=== PATIENT | female | born 2005 | race Caucasian/White ===

== ENCOUNTER 2024-08-24 21:35 | Emergency (ER) | payer OTHER, SELFPAY ==
--- NOTE | ~2024-08-24 | XR_ITS ---
EXAMINATION: XR CHEST CLINICAL INFORMATION: Cough COMPARISON: None available. TECHNIQUE: Frontal view of the chest was obtained. FINDINGS: No significant abnormality is noted involving the heart, lungs, mediastinum, bony thorax or soft tissues. XR/XR chest 1V IMPRESSION: Unremarkable examination. Electronically signed by: Hernandez Pearce MD 08/24/2024 10:13 PM [facility] [place]
[2024-08-24 21:40] VITALS: BP 136/80; PULSE 99; RESP 18; TEMP 36.1; O2SAT 98; BMI 33.3
--- NOTE | 2024-08-24 21:54 | ED.URI ---
HPI - URI/Sore Throat General Chief Complaint: Upper Respiratory Symptoms Stated Complaint: Flu like symptoms Time Seen by Provider: 08/24/24 21:46 Source: patient and family Mode of arrival: ambulatory Limitations: no limitations History of Present Illness ED Provider: DR. Dennis HPI Narrative: 18-year-old female came in for evaluation of upper respiratory infection x1 week. Patient exposed at work to a sick contacts with upper respiratory symptoms, complaining of congestion, coughing, sinus pressure, bilateral ear pain, sneezing. Related Data Allergies Allergy/AdvReac Type Severity Reaction Status Date / Time Penicillins [PENICILLINS] Allergy Intermediate HIVES Verified 08/24/24 21:42 Review of Systems Review of Systems: All other systems are reviewed and are negative Constitutional: Reports as per HPI and Reports no additional constitutional complaints Eyes: Reports as per HPI and Reports no additional eye complaints Reports system reviewed and no additional complaints, except as documented Cardiovascular: Reports as per HPI and Reports no additional cardiovascular complaints Respiratory: Reports as per HPI and Reports no additional respiratory complaints Gastrointestinal: Reports as per HPI and Reports no additional gastrointestinal complaints Genitourinary: Reports no additional female genitourinary complaints Musculoskeletal: Reports no additional musculoskeletal complaints Skin/Breast: Reports system reviewed and no additional complaints, except as docu Psychiatric: Reports no additional psychiatric complaints Endocrine: Reports no additional endocrine complaints Hematologic/Lymphatic: Reports no additional hematologic/lymphatic complaints Allergic/Immunologic: Reports no additional allergic/immunologic complaints Reports system reviewed and no additional complaints, except as documented and Reports Abnormal speech present PMFSH Social History Social History Advance Directives: No Advance Directives Information Provided: Yes Do you have a plan to hurt others: No Plan Physical Exam Vital Signs: Vital Signs: Last Vital Signs Temp 97.0 F 08/24/24 21:40 Pulse 99 08/24/24 21:40 Resp 18 08/24/24 21:40 BP 136/80 08/24/24 21:40 Pulse Ox 98 08/24/24 21:40 O2 Del Method Room Air 08/24/24 21:40 BMI result Body Mass Index 33.3 Vital signs have been reviewed and appear to be correct. Blood pressure elevated. Heart rate normal. Respiratory rate normal. Temperature normal. Oxygen saturation normal. Appearance: Alert. Oriented X3. No acute distress. Head: Normal external exam. Normocephalic. Atraumatic. No Murguia signs noted. No raccoon eyes noted Eyes: PERRLA. EOMI. Conjunctiva and sclera normal. Eyelids normal. ENT: TM's Normal. Pharynx normal. Uvula midline. Moist mucous membranes. No trismus noted. No drooling noted. No muffled voice noted. Neck: Normal inspection. Neck supple. FROM. No adenopathy. Thyroid Normal. No meningeal signs. No neck mass noted. CVS: Normal heart rate and rhythm. Heart sound normal. No murmurs noted. Pulses normal throughout. Respiratory: No respiratory distress. Painless inspiration. Breath sounds normal. No wheezes/rales/rhonchi noted. Chest nontender. No accessory muscle usage noted or decreased air movement noted. Abdomen: Soft and nontender. Bowel sounds normal in all 4 quadrants. No distention noted. No organomegaly noted. No visible injury noted. Back: No CVA tenderness. Full range of motion noted. Skin: Skin warm and dry. Normal skin color. Normal skin turgor. No rashes/lesions/lacerations noted. Extremities: No lower extremity edema. Extremities exhibit normal range of motion. Extremities nontender. Neuro: Oriented X 3. Cranial nerve exam: II-XII are grossly intact No motor deficit. No sensory deficit. Reflexes normal. Course Reevaluation(s) Reevaluation #1: Upper respiratory symptoms due to COVID-19 infection. Time: 23:00 Medical Decision Making Differential Diagnosis Differential Diagnoses: The differential diagnosis associated with the presentation includes (Pneumonia, pneumothorax, pleural effusion, viral upper respiratory infection.) Admission/Observation Consideration of admission/observation: Escalation of care including admission/observation considered Lab Data MDM Lab Attestation statement: I reviewed the patient's lab results. Labs: Lab Results 08/24/24 Range/Units 21:46 Influenza Type A (PCR) NEGATIVE (Negative) Influenza Type B (PCR) NEGATIVE (Negative) RSV RNA Qual (PCR) NEGATIVE (Negative) SARS-CoV-2 RNA (RT-PCR) POSITIVE A (Negative) Independent Interpretation I performed an independent interpretation of an: Plain X-Ray (Chest: No acute intrathoracic pathology.) Radiology Impression Discussion of test interpretation with radiology: I have reviewed the radiologist's reading. Discharge Plan Discharge Clinical Impression: Upper respiratory infection, COVID-19 Patient Disposition: Home, Self-Care Instructions: Upper Respiratory Infection (ED) Additional Instructions: Self quarantine, keep social distancing, where face mask at all times, frequent hand wash. Stand Alone Forms: Work/School Release Print Language: Macanese
[2024-08-24 22:26] LABS: Influenza A PCR NEGATIVE (Negative); Influenza B PCR NEGATIVE (Negative); Resp Syncy Virus RNA Qual PCR NEGATIVE (Negative); SARS COV2 PCR INHOUSE POSITIVE (Negative)
[2024-08-24 23:14] VITALS: BP 136/80; PULSE 99; RESP 18; TEMP 36.1; O2SAT 98
== END 2024-08-24 23:14 | disposition home or self-care (01) ==
PROVIDERS: Emergency Provider Emergency Medicine
DX: J06.9 Acute upper respiratory infection, unspecified (principal); U07.1 COVID-19; J02.9 Acute pharyngitis, unspecified; H92.03 Otalgia, bilateral; R05.9 Cough, unspecified
CPT/HCPCS: 0241U; 71045; 99282; 99283

== ENCOUNTER 2025-08-22 11:15 | Emergency (ER) | payer OTHER, SELFPAY ==
--- NOTE | ~2025-08-22 | XR_ITS ---
EXAMINATION: XR ANKLE 3 OR MORE VIEWS RIGHT, XR FOOT 3 OR MORE VIEWS RIGHT HISTORY: fall COMPARISON: There are no prior studies available for comparison. FINDINGS: Six views of the right foot and ankle are submitted. Osseous mineralization is normal. There is no fracture or dislocation. The joint spaces are preserved. There is soft tissue swelling over the lateral malleolus. XR/XR ankle RT min 3V IMPRESSION: Soft tissue swelling over the lateral malleolus. No evidence of fracture of the right foot or ankle. Electronically signed by: Tam Lang MD 08/22/2025 12:10 [place] [facility] [place]
--- NOTE | ~2025-08-22 | XR_ITS ---
EXAMINATION: XR ANKLE 3 OR MORE VIEWS RIGHT, XR FOOT 3 OR MORE VIEWS RIGHT HISTORY: fall COMPARISON: There are no prior studies available for comparison. FINDINGS: Six views of the right foot and ankle are submitted. Osseous mineralization is normal. There is no fracture or dislocation. The joint spaces are preserved. There is soft tissue swelling over the lateral malleolus. XR/XR foot RT min 3V IMPRESSION: Soft tissue swelling over the lateral malleolus. No evidence of fracture of the right foot or ankle. Electronically signed by: Tam Lang MD 08/22/2025 12:10 PM [facility]
[2025-08-22 11:18] VITALS: BP 138/75; PULSE 100; RESP 18; TEMP 36.6; O2SAT 99; BMI 39.1
--- NOTE | 2025-08-22 11:44 | ED_ITS ---
HPI - General Adult General Chief complaint: Extremity Injury, Lower Stated complaint: Right Ankle- Swelling Time Seen by Provider: 08/22/25 12:30 Source: patient Mode of arrival: ambulatory Limitations: no limitations History of Present Illness ED Provider: Kota Salas HPI narrative: 19 yold female presents to the ED For RIght lower extremity pain after mechanical fall down some stairs due to slipping. patient denies hitting head or loss of conscisounes. Patient states no other compalints. Related Data Previous Rx's ?Medication ?Instructions ?Recorded naproxen 500 mg tablet 500 mg PO BID PRN pain #14 t abs 08/22/25 Allergies Allergy/AdvReac Type Severity Reaction Status Date / Time Penicillins (PENICILLINS) Allergy Intermediate HIVES Verified 08/22/25 11:19 Review of Systems 2 Review of Systems: RME: RIght ankle Yes all other systems are reviewed and are negative [facility] Social History Social History Advance Directives: No Advance Directives Information Provided: No Do you have a plan to hurt others: No Plan Physical Exam ED Vital Signs: Vital Signs - 24 hr 08/22/25 11:18 Temperature 98 F Pulse Rate 100 Respiratory Rate 18 Blood Pressure 138/75 Pulse Oximetry 99 Oxygen Delivery Method Room Air BMI result Body Mass Index 39.1 Const General: cooperative, healthy appearing, comfortable, no acute distress, well developed, alert, awake and Physically active Orientation/consciousness: patient oriented x3 HENMT Head: Yes normal to inspection, Yes No palpable skull fracture present, Yes normocephalic and Yes atraumatic Ears: hearing grossly normal bilaterally, external ears normal, TM's normal bilaterally, TM normal on the right, TM normal on the left, EAC's normal and mastoids normal Eyes General: appearance normal, both eyes and all related structures Neck Neck: Yes normal visual inspection, Yes full ROM, Yes no lymphadenopathy, Yes no meningeal signs, Yes trachea midline, Yes supple, No anterior neck swelling and No tender Chest Chest palpation & inspection: normal inspection of the chest and normal palpation of entire chest wall Resp Effort & Inspection: normal respiratory effort and able to speak in complete sentences Cardio Jugular venous distension: no JVD Heart sounds: S1 normal heart sound present and S2 normal heart sound present GI Inspection: Yes normal to inspection Palpation (GI): Soft to palpation, not firm, nontender, no guarding and not rigid General: Yes no CVA tenderness Back/Spine/Pelvis Back: no CVA tenderness and No back tenderness Skin General skin exam: no rashes or lesions noted, elasticity normal and turgor normal Neuro General: patient oriented x3, gait normal, tone normal, moves all extremities, Normal light touch and pain sensation, no meningeal signs, no focal motor deficits, CN's II-XI intact bilaterally and normal sensation to monofilament Extrem General: Yes normal to inspection, Yes full ROM and Yes capillary refill normal Ankle/foot/toe images: 2 1. Positive for tenderness on palpation. Negative for crepitus, ecchymosis, deformity, erythema, or red streaks. Rest of extremity normal. Motor/neuro/vascular exam intact Psych Appearance: grossly normal, well kempt and not disheveled Course Course Course Narrative: RME: 19-year-old female presents to the right ankle pain after falling down stairs. patient michael hitting head. imaging ordered. Medical Decision Making Medical Decision Making MDM Narrative: 19-year-old female presents to ED for right ankle pain after fall. Patient denies any head injury or any other complaints. X-rays negative for fracture. Jacoby boot ordered. Patient is educated worrisome signs informed return to the ED immediately. NOt suspecting compartment syndrome, DVT, Cellulitits, arterial occlusions, or any other life threatening etiology. Differential Diagnosis Differential Diagnoses: The differential diagnosis associated with the presentation includes (Fracture, dislocation) Admission/Observation Consideration of admission/observation: Escalation of care including admission/observation considered Independent Interpretation I performed an independent interpretation of an: Plain X-Ray Radiology Impression Discussion of test interpretation with radiology: I have reviewed the radiologist's reading. Independent Historian Clinical information obtained from an independent historian. History obtained from or confirmed by: Other (Patient) Prescription Management I considered prescription management with: Pain Medication Discharge Plan Discharge Clinical Impression: Ankle sprain and strain Patient Disposition: Home, Self-Care Instructions: Crutch Instructions (ED), Sprain (ED), P.R.I.C.E. Treatment (ED), Walking Boot (ED) Additional Instructions: Recommend follow up with primary care provider. Return to the ED immediately for any swelling, bluish black discoloration, calf pain, chest pain, shortness of breath, fever, chills, or any other concerning symptoms. Prescriptions: New naproxen 500 mg tablet 500 mg PO BID PRN (Reason: pain) Qty: 14 0RF Stand Alone Forms: Work/School Release Interventions: ED Discharge Assessment Last Done: 08/22/25 13:13 Discharge Date/Time: 08/22/25 13:14 Print Language: Macedonian
[2025-08-22 13:13] VITALS: BP 138/75; PULSE 100; RESP 18; TEMP 36.6; O2SAT 99
== END 2025-08-22 13:14 | disposition home or self-care (01) ==
PROVIDERS: Emergency Provider Emergency Medicine
DX: S93.401A Sprain of unspecified ligament of right ankle, initial encounter (principal); R60.0 Localized edema; M25.571 Pain in right ankle and joints of right foot; W10.9XXA Fall (on) (from) unspecified stairs and steps, initial encounter; Y93.9 Activity, unspecified; Y92.9 Unspecified place or not applicable; Y99.8 Other external cause status
CPT/HCPCS: 73610; 73630; 99283

== ENCOUNTER → 2025-08-22 11:43 | Outpatient (BNV) | payer OTHER, SELFPAY | PROVIDERS: Emergency Provider Emergency Medicine; Visit Provider Radiology Diagnostic Radiology | DX: M79.89 Other specified soft tissue disorders (principal); Z04.3 Encounter for examination and observation following other accident | CPT/HCPCS: 73610; 73630 ==